=== PATIENT | male | born 1980 | race Caucasian/White ===

== ENCOUNTER 2022-06-11 10:49 | Inpatient (IN) | payer OTHER ==
[2022-06-11 11:29] VITALS: BMI 38.0
[2022-06-11] MEDS ORDERED: BENZOCAINE/MENTHOL (CHLORASEPTIC ) LOZENGE MM PRN (12:23)
[2022-06-11] MEDS ORDERED: LOPERAMIDE HCL 2 MG CAPSULE PO PRN (12:23)
[2022-06-11] MEDS ORDERED: NALOXONE HCL (KLOXXADO) 8 MG SPRAY NS PRN (12:23)
[2022-06-11] MEDS ORDERED: BISMUTH SUBSALICYLATE 262 MG/15 ML BTL PO PRN (12:23)
[2022-06-11] MEDS ORDERED: MAGNESIUM HYDROX 2400MG/30ML ORAL SUSPENSION 30 ML CUP PO PRN (12:23)
[2022-06-11] MEDS ORDERED: MAG HYDROX/AL HYDROX/SIMETH 30 ML UNIT-DOSE CUP PO PRN (12:23)
[2022-06-11] MEDS ORDERED: ACETAMINOPHEN 325 MG TABLET (FP) PO PRN ×2 (12:23)
[2022-06-11] MEDS ORDERED: IBUPROFEN 400 MG TABLET (FP) PO PRN (12:23)
[2022-06-11] MEDS ORDERED: ONDANSETRON *ODT* 4 MG TABLET SL PRN (12:23)
[2022-06-11] MEDS ORDERED: MAGNESIUM CITRATE 300 ML BOTTLE PO PRN (12:23)
[2022-06-11] MEDS ORDERED: METHOCARBAMOL 500 MG TABLET PO PRN (12:23)
[2022-06-11] MEDS ORDERED: IBUPROFEN 600 MG TABLET (FP) PO PRN (12:23)
[2022-06-11] MEDS ORDERED: LORazepam 2 MG TABLET PO ONE (12:23)
[2022-06-11] MEDS ORDERED: DICYCLOMINE HCL 10 MG CAPSULE PO PRN (12:23)
[2022-06-11] MEDS ORDERED: LORazepam 1 MG TABLET ONE (13:41)
[2022-06-11] MEDS: LORazepam 1 MG TABLET PO PRN (13:49)
[2022-06-11] MEDS: NICOTINE 14 MG/24 HOURS TOPICAL PATCH TD SCH (14:32)
[2022-06-11] MEDS: NICOTINE 10 MG CARTRIDGE (INHALER) IH PRN (14:33)
[2022-06-11] MEDS: hydrOXYzine PAMOATE 25 MG CAPSULE (FP) PO SCH ×3 (14:33→22:57)
[2022-06-11] MEDS: PRENATAL VITAMINS W/ FOLIC ACID TABLET (FP) PO SCH (14:34)
[2022-06-11 16:35] LABS: HEMATOCRIT 44.1 % (35.4-49); HEMOGLOBIN 15.1 GM/dL (11.7-16.9); MCH 33.8 pg (25.7-33.7); MCHC 34.2 g/dl (32.0-35.9); MEAN CELL VOLUME 98.9 fl (80-96); MEAN PLT VOLUME 8.9 fl (7.5-11.1); PLATELET COUNT 204 10^3/uL (134-434); RBC 4.46 M/mm3 (4.00-5.60); RDW 14.3 % (11.9-15.9); WHITE BLOOD COUNT 3.3 K/mm3 (4.0-10.0)
[2022-06-11 16:45] LABS: CALCIUM 9.5 mg/dL (8.5-10.1)
[2022-06-11 16:46] LABS: ALBUMIN 4.3 g/dl (3.4-5.0); BLOOD UREA NITROGEN 11.5 mg/dL (7-18)
[2022-06-11 16:49] LABS: CREATININE 0.9 mg/dL (0.55-1.3)
[2022-06-11 16:51] LABS: BILIRUBIN,TOTAL 0.5 mg/dL (0.2-1); TOT PROT 8.2 g/dl (6.4-8.2)
[2022-06-11] MEDS: LORazepam 2 MG TABLET PO SCH ×2 (17:49→22:58)
[2022-06-11] MEDS ORDERED: MELATONIN 5 MG TABLETS PO SCH (22:00)
[2022-06-11] MEDS: THIAMINE HCL 100 MG TABLET (FP) PO SCH (22:58)
[2022-06-12] MEDS: LORazepam 2 MG TABLET PO SCH ×4 (05:19→22:31)
[2022-06-12] MEDS: hydrOXYzine PAMOATE 25 MG CAPSULE (FP) PO SCH ×5 (05:19→22:32)
[2022-06-12] MEDS: DULoxetine HCL 30 MG CAPSULE.DR PO SCH (10:35)
[2022-06-12] MEDS: OLANZapine 10 MG TABLET PO SCH (10:35)
[2022-06-12] MEDS: PRENATAL VITAMINS W/ FOLIC ACID TABLET (FP) PO SCH (10:35)
[2022-06-12] MEDS: NICOTINE 10 MG CARTRIDGE (INHALER) IH PRN (10:35)
[2022-06-12] MEDS: NICOTINE 14 MG/24 HOURS TOPICAL PATCH TD SCH (10:36)
[2022-06-12] MEDS: PANTOPRAZOLE 20 MG TABLET PO SCH (13:54)
[2022-06-12] MEDS: LACTULOSE 20 GM/30 ML UDC (FOR ORAL USE ONLY) PO SCH ×3 (13:54→22:32)
[2022-06-12] MEDS: LORazepam 1 MG TABLET PO PRN ×2 (13:54→20:13)
[2022-06-12] MEDS: BICTEGRAV/EMTRICIT/TENOFOV (BIKTARVY) 50-200-25 MG TABLET PO SCH (13:54)
[2022-06-12] MEDS: LOSARTAN POTASSIUM 50 MG TABLET PO SCH (13:54)
[2022-06-12] MEDS: NICOTINE POLACRILEX 2 MG GUM BC PRN ×3 (15:05→20:15)
[2022-06-12] MEDS ORDERED: SUVOREXANT 10 MG TABLET PO PRN (22:00)
[2022-06-12] MEDS: THIAMINE HCL 100 MG TABLET (FP) PO SCH (22:32)
[2022-06-13] MEDS: LORazepam 1 MG TABLET PO SCH ×3 (05:21→17:37)
[2022-06-13] MEDS: hydrOXYzine PAMOATE 25 MG CAPSULE (FP) PO SCH ×4 (05:21→17:37)
[2022-06-13] MEDS: NICOTINE POLACRILEX 2 MG GUM BC PRN (05:23)
[2022-06-13] MEDS: BICTEGRAV/EMTRICIT/TENOFOV (BIKTARVY) 50-200-25 MG TABLET PO SCH (07:06)
[2022-06-13 09:49] LABS: ALBUMIN 3.8 g/dl (3.4-5.0); CALCIUM 9.8 mg/dL (8.5-10.1)
[2022-06-13 09:50] LABS: BLOOD UREA NITROGEN 12.7 mg/dL (7-18)
[2022-06-13 09:54] LABS: BILIRUBIN,TOTAL 0.8 mg/dL (0.2-1)
[2022-06-13] MEDS: OLANZapine 10 MG TABLET PO SCH (10:07)
[2022-06-13] MEDS: DULoxetine HCL 30 MG CAPSULE.DR PO SCH (10:07)
[2022-06-13] MEDS: LOSARTAN POTASSIUM 50 MG TABLET PO SCH (10:07)
[2022-06-13] MEDS: LACTULOSE 20 GM/30 ML UDC (FOR ORAL USE ONLY) PO SCH ×3 (10:08→17:37)
[2022-06-13] MEDS: PANTOPRAZOLE 20 MG TABLET PO SCH (10:08)
[2022-06-13] MEDS: NICOTINE 14 MG/24 HOURS TOPICAL PATCH TD SCH (10:08)
[2022-06-13] MEDS: PRENATAL VITAMINS W/ FOLIC ACID TABLET (FP) PO SCH (10:08)
[2022-06-13] MEDS: LORazepam 1 MG TABLET PO PRN (12:57)
[2022-06-13 18:12] VITALS: BP 115/74; PULSE 91; RESP 18; TEMP 97.3
[2022-06-14] MEDS ORDERED: LORazepam 0.5 MG TABLET PO PRN
[2022-06-14] MEDS ORDERED: LORazepam 0.5 MG TABLET PO SCH (05:00)
[2022-06-15] MEDS ORDERED: LORazepam 0.5 MG TABLET PO ONE (05:00)
== END 2022-06-13 18:20 | disposition left against medical advice (07) | DRG 770 ==
LOC: YASAS 10:49 → Y3N 13:32
PROVIDERS: ADMIT Allergy & Immunology; ATTEND Surgery
PROC: HZ2ZZZZ Detoxification Services for Substance Abuse Treatment (ICD-10-PCS; principal; 2022-06-11)
DX: F10.230 Alcohol dependence with withdrawal, uncomplicated (principal); F12.20 Cannabis dependence, uncomplicated; F17.290 Nicotine dependence, other tobacco product, uncomplicated; F19.282 Other psychoactive substance dependence with psychoactive substance-induced sleep disorder; F31.9 Bipolar disorder, unspecified; Z21 Asymptomatic human immunodeficiency virus [HIV] infection status; R76.8 Other specified abnormal immunological findings in serum; R94.5 Abnormal results of liver function studies; R79.89 Other specified abnormal findings of blood chemistry; Z86.19 Personal history of other infectious and parasitic diseases
CPT/HCPCS: 36415; 71046-TC-FY; 80053; 82140; 85027; 86593; 86780; 93005; 93010; C9803-CS; U0003; U0005

== ENCOUNTER 2023-01-19 18:52 | Inpatient (IN) | payer OTHER ==
[2023-01-19 19:31] VITALS: BMI 34.9
[2023-01-19] MEDS ORDERED: LORazepam 1 MG TABLET PO PRN (21:29)
[2023-01-19] MEDS ORDERED: BISMUTH SUBSALICYLATE 524 MG/30 ML PO PRN (21:34)
[2023-01-19] MEDS ORDERED: POLYETHYLENE GLYCOL (HEALTHYLAX) 3350 17 GM PACKET PO PRN (21:34)
[2023-01-19] MEDS ORDERED: IBUPROFEN 600 MG TABLET (FP) PO PRN (21:34)
[2023-01-19] MEDS ORDERED: IBUPROFEN 400 MG TABLET (FP) PO PRN (21:34)
[2023-01-19] MEDS ORDERED: guaiFENesin 600 MG TABLET.ER (FP) PO PRN (21:34)
[2023-01-19] MEDS ORDERED: LOPERAMIDE HCL 2 MG CAPSULE PO PRN (21:34)
[2023-01-19] MEDS ORDERED: P-EPHED 60MG/TRIPROLIDI 2.5MG TABLET PO PRN (21:34)
[2023-01-19] MEDS ORDERED: BENZOCAINE/MENTHOL (CHLORASEPTIC ) LOZENGE MM PRN (21:34)
[2023-01-19] MEDS ORDERED: DICYCLOMINE HCL 10 MG CAPSULE PO PRN (21:34)
[2023-01-19] MEDS ORDERED: MAG HYDROX/AL HYDROX/SIMETH 30 ML UNIT-DOSE CUP PO PRN (21:34)
[2023-01-19] MEDS ORDERED: MAGNESIUM HYDROX 2400MG/30ML ORAL SUSPENSION 30 ML CUP PO PRN (21:34)
[2023-01-19] MEDS ORDERED: BENZONATATE 200 MG CAPSULE PO PRN (21:34)
[2023-01-19] MEDS ORDERED: ONDANSETRON *ODT* 4 MG TABLET SL PRN (21:34)
[2023-01-19] MEDS ORDERED: MELATONIN 5 MG TABLETS PO SCH (22:00)
[2023-01-19] MEDS ORDERED: LORazepam 2 MG TABLET ONE (22:03)
[2023-01-19] MEDS: LORazepam 2 MG TABLET PO SCH (22:05)
[2023-01-19] MEDS ORDERED: NICOTINE POLACRILEX 4 MG GUM BUC ONE (22:19)
[2023-01-19] MEDS: NICOTINE POLACRILEX 2 MG GUM BUC PRN (22:52)
[2023-01-19] MEDS: hydrOXYzine PAMOATE 25 MG CAPSULE (FP) PO PRN (23:15)
[2023-01-19] MEDS: THIAMINE HCL 100 MG TABLET (FP) PO SCH (23:15)
[2023-01-19] MEDS: LOSARTAN POTASSIUM 50 MG TABLET PO SCH (23:15)
[2023-01-20] MEDS: LORazepam 2 MG TABLET PO SCH ×4 (05:33→22:32)
[2023-01-20] MEDS: LOSARTAN POTASSIUM 50 MG TABLET PO SCH (10:10)
[2023-01-20] MEDS: BICTEGRAV/EMTRICIT/TENOFOV (BIKTARVY) 50-200-25 MG TABLET PO SCH (10:10)
[2023-01-20] MEDS: PANTOPRAZOLE 20 MG TABLET PO SCH (10:10)
[2023-01-20] MEDS: FOLIC ACID 1 MG TABLET (FP) PO SCH (10:10)
[2023-01-20] MEDS: PRENATAL VITAMINS W/ FOLIC ACID TABLET (FP) PO SCH (10:10)
[2023-01-20] MEDS: GABAPENTIN 100 MG CAPSULE PO SCH ×2 (10:11→22:30)
[2023-01-20] MEDS: DULoxetine HCL 30 MG CAPSULE.DR PO SCH (10:11)
[2023-01-20] MEDS: NICOTINE POLACRILEX 2 MG GUM BUC PRN ×3 (10:13→17:36)
[2023-01-20 11:41] LABS: HEMATOCRIT 39.8 % (35.4-49); HEMOGLOBIN 13.9 GM/dL (11.7-16.9); MCH 34.3 pg (25.7-33.7); MCHC 34.9 g/dl (32.0-35.9); MEAN CELL VOLUME 98.3 fl (80-96); MEAN PLT VOLUME 8.9 fl (7.5-11.1); PLATELET COUNT 205 10^3/uL (134-434); RBC 4.04 M/mm3 (4.00-5.60); RDW 14.5 % (11.9-15.9); WHITE BLOOD COUNT 4.7 K/mm3 (4.0-10.0)
[2023-01-20 11:44] LABS: POTASSIUM 4.2 mmol/L (3.5-5.1)
[2023-01-20 11:52] LABS: CREATININE 0.9 mg/dL (0.55-1.3)
[2023-01-20 11:53] LABS: ALBUMIN 3.9 g/dl (3.4-5.0); TOT PROT 7.4 g/dl (6.4-8.2)
[2023-01-20 11:54] LABS: BLOOD UREA NITROGEN 11.4 mg/dL (7-18)
[2023-01-20 12:02] LABS: BILIRUBIN,TOTAL 0.7 mg/dL (0.2-1)
[2023-01-20] MEDS: hydrOXYzine PAMOATE 25 MG CAPSULE (FP) PO PRN (15:55)
[2023-01-20] MEDS ORDERED: SUVOREXANT 5 MG TABLET PO PRN (22:00)
[2023-01-20] MEDS ORDERED: risperiDONE 1 MG TABLET PO SCH (22:00)
[2023-01-20] MEDS: THIAMINE HCL 100 MG TABLET (FP) PO SCH (22:30)
[2023-01-21] MEDS: LORazepam 1 MG TABLET PO SCH ×2 (05:20→10:22)
[2023-01-21] MEDS: NICOTINE POLACRILEX 2 MG GUM BUC PRN ×3 (09:07→15:06)
[2023-01-21] MEDS: PRENATAL VITAMINS W/ FOLIC ACID TABLET (FP) PO SCH (10:19)
[2023-01-21] MEDS: FOLIC ACID 1 MG TABLET (FP) PO SCH (10:19)
[2023-01-21] MEDS: BICTEGRAV/EMTRICIT/TENOFOV (BIKTARVY) 50-200-25 MG TABLET PO SCH (10:20)
[2023-01-21] MEDS: GABAPENTIN 100 MG CAPSULE PO SCH (10:20)
[2023-01-21] MEDS: LOSARTAN POTASSIUM 50 MG TABLET PO SCH (10:20)
[2023-01-21] MEDS: PANTOPRAZOLE 20 MG TABLET PO SCH (10:20)
[2023-01-21] MEDS: DULoxetine HCL 30 MG CAPSULE.DR PO SCH (10:20)
[2023-01-21 13:44] VITALS: RESP 18
[2023-01-21 18:13] VITALS: BP 143/107; PULSE 102; TEMP 97.7
[2023-01-22] MEDS ORDERED: LORazepam 0.5 MG TABLET PO PRN
[2023-01-22] MEDS ORDERED: LORazepam 0.5 MG TABLET PO SCH (05:00)
[2023-01-23] MEDS ORDERED: LORazepam 0.5 MG TABLET PO ONE (05:00)
== END 2023-01-21 17:54 | disposition left against medical advice (07) | DRG 770 ==
LOC: YASAS 18:52 → Y3N 22:43
PROVIDERS: ADMIT Allergy & Immunology; ATTEND Surgery
PROC: HZ2ZZZZ Detoxification Services for Substance Abuse Treatment (ICD-10-PCS; principal; 2023-01-19)
DX: F10.230 Alcohol dependence with withdrawal, uncomplicated (principal); F12.20 Cannabis dependence, uncomplicated; F10.282 Alcohol dependence with alcohol-induced sleep disorder; F10.24 Alcohol dependence with alcohol-induced mood disorder; F31.9 Bipolar disorder, unspecified; B20 Human immunodeficiency virus [HIV] disease; I10 Essential (primary) hypertension; K21.9 Gastro-esophageal reflux disease without esophagitis; Z91.410 Personal history of adult physical and sexual abuse; Z87.891 Personal history of nicotine dependence; Z86.19 Personal history of other infectious and parasitic diseases; Z87.19 Personal history of other diseases of the digestive system
CPT/HCPCS: 36415; 80053; 85027; 86593; 86780; C9803-CS; U0003; U0005